=== PATIENT | male | born 1960 | race Caucasian/White ===

== ENCOUNTER 2020-05-24 12:52 | Observation (INO) | payer OTHER ==
[~2020-05-24] VITALS: Ht 172.7 cm; Wt 81.8 kg
[~2020-05-24 12:52] MED LIST: ASPI81TA52 PO; BUPR100T16 PO; HYDR-3973 PO; HYDR25TA4 PO; IBUP-1986 PO; MORP15TA PO; TIZA4CAP PO; VAL5T PO
--- NOTE | 2020-05-24 13:42 | NUR ---
PATIENT REFUSING TOO CHANGE INTO [facility].
[2020-05-24 13:49] LABS: BASOPHILS % (AUTO) 0.3 % (0-1); EOSINOPHILS # (AUTO) 0.1 X10'3 (0-0.9); EOSINOPHILS % (AUTO) 0.5 % (0-6); HEMOGLOBIN 9.6 g/dl (14.0-17.9); LYMPHOCYTES % (AUTO) 7.9 % (21-51); MEAN CORPUSCULAR HEMOGLOBIN 30.6 PG (27.0-31.0); MEAN CORPUSCULAR HGB CONC 33.2 g/dL (33.0-36.5); MEAN CORPUSCULAR VOLUME 92.1 FL (78-98); MEAN PLATELET VOLUME 7.3 FL (7.4-10.4); MONOCYTES % (AUTO) 7.8 % (2-12); NEUTROPHILS # (AUTO) 10.6 X10'3 (1.8-7.7); NEUTROPHILS % (AUTO) 83.5 % (42-75); PLATELET COUNT 290 X10'3 (140-440); RED BLOOD COUNT 3.15 X10'6 (4.70-6.10); RED CELL DISTRIBUTION WIDTH 14.3 % (11.5-14.5); WHITE BLOOD COUNT 12.6 X10'3 (4.5-11.0)
[2020-05-24 14:07] LABS: ALANINE AMINOTRANSFERASE 86 U/L (12-78); ALBUMIN 2.7 G/DL (3.4-5.0); ALBUMIN/GLOBULIN RATIO 0.6 (1.1-1.5); ALKALINE PHOSPHATASE 159 IU/L (46-116); ANION GAP 9 (8-16); ASPARTATE AMINO TRANSFERASE 34 U/L (10-37); BILIRUBIN,TOTAL 0.3 MG/DL (0.1-1.0); BLOOD UREA NITROGEN 59 MG/DL (7-18); BUN/CREATININE RATIO 26.2 (5.4-32.0); CALCIUM 9.7 MG/DL (8.5-10.1); CHLORIDE 100 MMOL/L (99-107); CREATININE 2.25 MG/DL (0.60-1.10); GLUCOSE 165 MG/DL (70-104); POTASSIUM 3.5 MMOL/L (3.5-5.1); SODIUM 138 MMOL/L (135-145); TOTAL PROTEIN 7.5 G/DL (6.4-8.2); eGFR 30 ML/MIN
[2020-05-24] MEDS ORDERED: LINA145C PO (15:48)
[2020-05-24] MEDS ORDERED: MORP-92 PO (15:55)
[2020-05-24] MEDS ORDERED: BUPR100T13 PO (15:57)
[2020-05-24] MEDS ORDERED: magnesium 4gm in 100ml NS 100 ML IV PRN (16:15)
[2020-05-24] MEDS ORDERED: bisacodyl 10mg suppository rectal RC PRN (16:15)
[2020-05-24] MEDS ORDERED: acetaminophen 650mg rectal suppository RC PRN (16:15)
[2020-05-24] MEDS ORDERED: ondansetron/PF 4mg/2ml inj IV PRN (16:15)
[2020-05-24] MEDS ORDERED: magnesium hydroxide 30ml (MOM) UD suspension PO PRN (16:15)
[2020-05-24] MEDS ORDERED: HYDROcodone/acetaminophen 5mg/325mg tablet PO PRN (16:15)
[2020-05-24] MEDS ORDERED: heparin 10,000 units/1 ML INJ IV PRN (16:15)
[2020-05-24] MEDS ORDERED: morphine 2 MG/ML inj. syringe IV PRN ×2 (16:15)
[2020-05-24] MEDS ORDERED: diphenhydrAMINE 25mg capsule PO PRN (16:15)
[2020-05-24] MEDS ORDERED: potassium CL 10mEq/100ml bag 100 ML IV PRN ×2 (16:15)
[2020-05-24] MEDS ORDERED: acetaminophen 325mg tablet PO PRN ×2 (16:15)
[2020-05-24] MEDS ORDERED: mag hydrox/Alum hydrox/simeth 30ml oral suspension PO PRN (16:15)
[2020-05-24] MEDS ORDERED: heparin 10,000 units/1 ML INJ IV ONE (16:15)
[2020-05-24] MEDS ORDERED: magnesium Cl slow-release 64mg tablet PO PRN (16:15)
[2020-05-24] MEDS ORDERED: magnesium 2GM in 50ml NS 50 ML IV PRN (16:15)
[2020-05-24] MEDS ORDERED: potassium Cl 20 mEq SR tablet PO PRN (16:15)
[2020-05-24] MEDS ORDERED: tizanidine 4mg tablet PO PRN (16:30)
--- NOTE | 2020-05-24 16:32 | NUR ---
LINZESS IS NOT AVAILABLE FROM THE PHARMACY THEY ARE ASKING FOR PT TO PROVIDE OWN LINZESS TO TAKE WHILE HERE.
--- NOTE | 2020-05-24 16:49 | NUR ---
received report from IRA Neves in ED. all questions/concerns answered and addressed. will continue to monitor
--- NOTE | 2020-05-24 16:50 | NUR ---
gave report to sahil calzada ACCE
[2020-05-24] MEDS: diazepam 5mg tablet PO SCH ×2 (17:52→20:49)
[2020-05-24] MEDS: morphine ER 15mg tablet PO SCH ×2 (17:52→20:50)
[2020-05-24 18:00] VITALS: BP 138/38
--- NOTE | 2020-05-24 18:00 | NUR ---
Patient in room [facility] 310. I have received report from Dwayne ROTH and had the opportunity to ask questions and assume patient care.
--- NOTE | 2020-05-24 18:05 | NUR ---
iv heparin gtt started. emar, not working properly
[2020-05-24] MEDS: heparin 25,000 UNIT/250ml bag 250 ML IV SCH (18:10)
--- NOTE | 2020-05-24 18:10 | NUR ---
Patient in room [facility] 310. I have received report from NIRALI ROTH and had the opportunity to ask questions and assume patient care.
--- NOTE | 2020-05-24 18:12 | NUR ---
Problems reprioritized. Patient report given, questions answered & plan of care reviewed with IRA Acuña.
[2020-05-24] MEDS: HYDROcodone/acetaminophen 10/325mg tab PO PRN (19:35)
[2020-05-24] MEDS: K and/or MAG REPLACEMENT MC SCH (20:00)
[2020-05-24] MEDS: normal saline 1000ml 1,000 ML IV SCH (20:49)
[2020-05-24] MEDS: HYDROchlorothiazide 25mg tablet PO SCH (20:50)
[2020-05-24] MEDS: buPROPion 100mg tablet PO SCH (21:24)
[2020-05-24 22:00] VITALS: BP 107/69
[2020-05-24 22:05] LABS: URINE AMPHETAMINE SCREEN NEGATIVE (Neg); URINE BARBITUATE SCREEN NEGATIVE (Neg); URINE BENZODIAZEPINES SCREEN POSITIVE (Neg); URINE CANNABINOID SCREEN NEGATIVE (Neg); URINE COCAINE SCREEN NEGATIVE (Neg); URINE METHADONE SCREEN NEGATIVE (Neg); URINE OPIATE SCREEN POSITIVE (Neg); URINE PHENCYCLIDINE SCREEN NEGATIVE (Neg)
[2020-05-25] MEDS ORDERED: ibuprofen tablet 400 MG TABLET PO ONE (00:15)
[2020-05-25] MEDS: HYDROcodone/acetaminophen 10/325mg tab PO PRN ×3 (00:56→08:51)
[2020-05-25 01:29] LABS: BASOPHILS % (AUTO) 0.2 % (0-1); EOSINOPHILS # (AUTO) 0.1 X10'3 (0-0.9); EOSINOPHILS % (AUTO) 0.9 % (0-6); HEMATOCRIT 26.1 % (42.0-52.0); HEMOGLOBIN 8.7 g/dl (14.0-17.9); LYMPHOCYTES # (AUTO) 1.4 X10'3 (1.1-4.8); LYMPHOCYTES % (AUTO) 12.1 % (21-51); MEAN CORPUSCULAR HEMOGLOBIN 31.2 PG (27.0-31.0); MEAN CORPUSCULAR HGB CONC 33.5 g/dL (33.0-36.5); MEAN CORPUSCULAR VOLUME 93.2 FL (78-98); MEAN PLATELET VOLUME 7.6 FL (7.4-10.4); MONOCYTES # (AUTO) 0.9 X10'3 (0-0.9); MONOCYTES % (AUTO) 7.6 % (2-12); NEUTROPHILS # (AUTO) 8.9 X10'3 (1.8-7.7); NEUTROPHILS % (AUTO) 79.2 % (42-75); PLATELET COUNT 253 X10'3 (140-440); RED CELL DISTRIBUTION WIDTH 14.3 % (11.5-14.5); WHITE BLOOD COUNT 11.3 X10'3 (4.5-11.0)
[2020-05-25 01:43] LABS: ALANINE AMINOTRANSFERASE 86 U/L (12-78); ALBUMIN 2.5 G/DL (3.4-5.0); ALBUMIN/GLOBULIN RATIO 0.6 (1.1-1.5); ALKALINE PHOSPHATASE 145 IU/L (46-116); ANION GAP 8 (8-16); ASPARTATE AMINO TRANSFERASE 33 U/L (10-37); BILIRUBIN,TOTAL 0.3 MG/DL (0.1-1.0); BLOOD UREA NITROGEN 59 MG/DL (7-18); BUN/CREATININE RATIO 29.2 (5.4-32.0); CHLORIDE 100 MMOL/L (99-107); CREATININE 2.02 MG/DL (0.60-1.10); GLUCOSE 114 MG/DL (70-104); POTASSIUM 3.4 MMOL/L (3.5-5.1); SODIUM 137 MMOL/L (135-145); TOTAL PROTEIN 6.8 G/DL (6.4-8.2); eGFR 34 ML/MIN
[2020-05-25 01:49] LABS: MAGNESIUM 2.1 MG/DL (1.5-2.4); PHOSPHORUS 3.5 MG/DL (2.3-4.5)
[2020-05-25 02:00] VITALS: BP 145/90
[2020-05-25] MEDS: normal saline 1000ml 1,000 ML IV SCH ×2 (02:15→12:15)
[2020-05-25] MEDS: potassium Cl 20 mEq SR tablet PO PRN ×2 (02:59→12:06)
[2020-05-25 06:00] VITALS: BP 155/104
--- NOTE | 2020-05-25 06:08 | NUR ---
Problems reprioritized. Patient report given, questions answered & plan of care reviewed with MAURILIO ROTH.
--- NOTE | 2020-05-25 06:34 | NUR ---
Patient in room [facility] 310. I have received report from IRA Boyer and had the opportunity to ask questions and assume patient care.
[2020-05-25] MEDS: diazepam 5mg tablet PO SCH ×2 (07:19→12:17)
[2020-05-25] MEDS: HYDROchlorothiazide 25mg tablet PO SCH (07:19)
[2020-05-25] MEDS: buPROPion 100mg tablet PO SCH ×2 (07:19→12:25)
[2020-05-25] MEDS: morphine ER 15mg tablet PO SCH ×2 (07:19→12:17)
[2020-05-25] MEDS: K and/or MAG REPLACEMENT MC SCH (08:00)
[2020-05-25] MEDS ORDERED: LINACLOTIDE 145 MCG PO SCH (08:00)
[2020-05-25] MEDS ORDERED: aspirin 81mg tablet.DR PO SCH (08:00)
[2020-05-25] MEDS: heparin 25,000 UNIT/250ml bag 250 ML IV SCH (09:47)
[2020-05-25] MEDS ORDERED: levoFLOXACIN-Levaquin 750MG/D5 150 ML IV SCH (10:35)
[2020-05-25] MEDS ORDERED: propranolol 10mg tablet PO SCH (10:40)
[2020-05-25 11:00] VITALS: BP 142/94
[2020-05-25] MEDS ORDERED: PROP10TA10 PO (13:25)
[2020-05-25] MEDS ORDERED: ALBU8.5H8 INH (13:27)
[2020-05-25] MEDS ORDERED: LEVO750T46 PO (13:27)
[2020-05-25] MEDS ORDERED: PANT40TA54 PO (13:27)
--- NOTE | 2020-05-25 15:19 | NUR ---
pt. discharged from facility at 1430. pt. was wheeled down to lobby by staff and met by his son. pt. signed and understood all paperwork. pt. IV was d/c intact. pt. new meds were faxed to [facility] on [address] and script was handed to pt. pt. understands to make f/u appointment with his PCP in [place]. pt. left with all belongings.
[2020-05-27] MEDS ORDERED: levoFLOXACIN-Levaquin 750MG/D5 150 ML IV SCH (08:00)
== END 2020-05-25 14:30 | disposition home or self-care (01) ==
LOC: ER 12:53 → ED HOLD 16:15 → MED 3N 17:35 → ORTHO 4S 18:05 → MED 3N 18:55
PROVIDERS: ADMIT Family Medicine; ATTEND Family Medicine
DX: R07.89 Other chest pain (principal); R91.8 Other nonspecific abnormal finding of lung field; G89.4 Chronic pain syndrome; M54.5 Low back pain; I10 Essential (primary) hypertension; Z87.891 Personal history of nicotine dependence; Z98.41 Cataract extraction status, right eye; Z98.42 Cataract extraction status, left eye; Z79.899 Other long term (current) drug therapy; Z79.82 Long term (current) use of aspirin
CPT/HCPCS: 36415; 71045; 78582; 80053; 80305; 83735; 83880; 84100; 84145; 84484; 85025; 85379; 85730; 87081; 93005; 96365; 96366; 96367; 96376; 99285; A9539; A9540; G0378; J1644; J1956; J7030